=== PATIENT | male | born 1950 | race Caucasian/White ===

== ENCOUNTER → 2023-11-17 12:27 | Outpatient (REF) | payer OTHER, SELFPAY | LOC: RCS 12:27 | PROVIDERS: ATTENDING PHYSICIAN Internal Medicine Cardiovascular Disease | DX: I25.10 Atherosclerotic heart disease of native coronary artery without angina pectoris (principal); R53.83 Other fatigue; Z95.5 Presence of coronary angioplasty implant and graft | CPT/HCPCS: 93017; 93350 ==

== ENCOUNTER → 2023-12-02 14:34 | Outpatient (REF) | payer OTHER, SELFPAY | LOC: RCS 14:34 | PROVIDERS: ATTENDING PHYSICIAN Internal Medicine Cardiovascular Disease; FAMILY PHYSICIAN Family Medicine | DX: I35.1 Nonrheumatic aortic (valve) insufficiency (principal) | CPT/HCPCS: 93306 ==

== ENCOUNTER → 2024-04-01 13:09 | Outpatient (REF) | payer OTHER, SELFPAY | LOC: RAD 13:09 | PROVIDERS: ATTENDING PHYSICIAN Physician Assistant; FAMILY PHYSICIAN Family Medicine | DX: Z01.818 Encounter for other preprocedural examination (principal) | CPT/HCPCS: 70030 ==

== ENCOUNTER → 2024-04-04 08:59 | Outpatient (REF) | payer OTHER, SELFPAY | LOC: PAVMRI 08:59 | PROVIDERS: ATTENDING PHYSICIAN Physician Assistant; FAMILY PHYSICIAN Family Medicine | DX: H93.A2 Pulsatile tinnitus, left ear (principal) | CPT/HCPCS: 70543; 70553; A9575 ==

== ENCOUNTER → 2025-03-22 08:08 | Outpatient (REF) | payer OTHER, SELFPAY | LOC: RCS 08:08 | PROVIDERS: ATTENDING PHYSICIAN Internal Medicine Cardiovascular Disease; FAMILY PHYSICIAN Family Medicine | DX: R55 Syncope and collapse (principal) | CPT/HCPCS: 93306; Q9950 ==

== ENCOUNTER → 2025-05-29 12:43 | Outpatient (REF) | payer OTHER, SELFPAY | LOC: RAD 12:43 | PROVIDERS: ATTENDING PHYSICIAN Radiology Diagnostic Radiology; FAMILY PHYSICIAN Family Medicine | DX: Z13.89 Encounter for screening for other disorder (principal) | CPT/HCPCS: 70030 ==

== ENCOUNTER → 2025-05-30 09:10 | Outpatient (REF) | payer OTHER, SELFPAY | LOC: MRI 3T 09:10 | PROVIDERS: ATTENDING PHYSICIAN Specialist; FAMILY PHYSICIAN Family Medicine | DX: R97.20 Elevated prostate specific antigen [PSA] (principal) | CPT/HCPCS: 72197; A9575 ==